=== PATIENT | female | born 1950 | race Caucasian/White ===

== ENCOUNTER 2016-05-09 14:33 | Emergency (ER) | payer MEDICARE, BC ==
[2016-05-09 15:29] LABS: #Lymphocytes 1.3 thou/uL (1.20-3.40); #Neutrophils 12.8 thou/uL (1.40-6.50); %Basophils 0.2 % (0.0-1.0); %Lymphocytes 8.6 % (21.0-51.0); %Monocytes 6.8 % (0.0-10.0); %Neutrophils 84.4 % (42.0-75.0); Hemoglobin 11.4 g/dL (12.0-16.0); Mean Corpuscular HGB CONC 33.4 g/dL (32.0-36.0); Mean Corpuscular Hemoglobin 31.9 pg (27.0-31.0); Mean Corpuscular Volume 95.5 fl (81.0-99.0); Mean Platelet Volume 5.5 fL (7.4-10.4); Platelet Count 259 thou/uL (130-400); RBC Distribution Width 12.6 % (11.5-14.5); Red Blood Cell (RBC) Count 3.56 mill/uL (4.20-5.40); White Blood Cell (WBC) Count 15.1 thou/uL (4.8-10.8)
[2016-05-09 15:44] LABS: Actual Bicarbonate (HCO3v) 24 mEq/L (24-30)
[2016-05-09 15:45] LABS: Base Excess -1.9 mEq/L (-2 - +2)
[2016-05-09 16:36] LABS: Bilirubin Negative (Negative); Blood, Urine Small (Negative); Clarity Clear (Clear); Glucose, Urine (Dipstick) Negative (Negative); Leukocyte Small (Negative); Nitrite Negative (Negative); Protein, Urine (Dipstick) 100 mg/dL (Neg-Trace); Urobilinogen 0.2 mg/dL (0.2-1.0); pH, Urine 5.5 (5.0-9.0)
[2016-05-09 16:38] LABS: Bacteria/HPF 3+ HPF (None Seen); RBC/HPF 0-3 HPF (0-3); Squamous Epithelial 0-3 HPF (0-3); Transitional Epithelial 0-3 HPF (0-3); WBC/HPF 0-3 HPF (0-3)
[2016-05-09] MEDS ORDERED: cefTRIAXone\\ROCEPHIN 1 GM VIAL ONE (16:51)
== END 2016-05-09 18:00 | disposition home or self-care (01) ==
LOC: BURERS 14:33
DX: N17.9 Acute kidney failure, unspecified (principal); N39.0 Urinary tract infection, site not specified; E86.0 Dehydration; G43.909 Migraine, unspecified, not intractable, without status migrainosus; E11.9 Type 2 diabetes mellitus without complications; I10 Essential (primary) hypertension; J45.909 Unspecified asthma, uncomplicated; Z79.82 Long term (current) use of aspirin; Z79.899 Other long term (current) drug therapy; Z86.73 Personal history of transient ischemic attack (TIA), and cerebral infarction without residual deficits
CPT/HCPCS: 36416; 81003; 81015; 82550; 82805; 85025; 87086; 96361; 96365; J0696

== ENCOUNTER 2016-05-14 10:24 | Outpatient (CLI) | payer MEDICARE, BC ==
[2016-05-14 11:07] LABS: Anion Gap 14 mmol/L (10-20); BUN (Urea Nitrogen) 50 mg/dL (9.8-20.1); Calc. Creatinine Clearance 0 mL/min (70-130); Calcium 9.2 mg/dL (7.8-10.44); Carbon Dioxide 21 mmol/L (23-31); Chloride 109 mmol/L (98-107); Estimated GFR-MDRD 34; Glucose 101 mg/dL (80-115); Potassium 3.7 mmol/L (3.5-5.1); Sodium 140 mmol/L (136-145)
== END 2016-05-14 10:25 | disposition home or self-care (01) ==
LOC: HPCALD 10:24
PROVIDERS: ATTEND Family Medicine
DX: N28.9 Disorder of kidney and ureter, unspecified (principal)
CPT/HCPCS: 36415; 80048

== ENCOUNTER 2016-07-15 20:07 | Emergency (ER) | payer MEDICARE, BC ==
[2016-07-15] MEDS ORDERED: Ondansetron HCl/PF 4 MG/2 ML Vial ONE (20:45)
[2016-07-15] MEDS ORDERED: Famotidine 20 MG TAB ONE (20:45)
[2016-07-15] MEDS ORDERED: Famotidine In NaCl 20 mg/50 ml Premix Bag ONE (20:46)
--- NOTE | 2016-07-15 21:42 | CT ---
CT ADOMEN AND PELVIS WITHOUT CONTRAST: Date: 07-15-16 Technique: Spiral CT of the abdomen and pelvis was performed for evaluation of abdominal pain. Ther e have been multiple prior surgeries. Axial slices were acquired without oral or IV contrast. Zhou l reconstructions were done. FINDINGS: The lung bases are clear. There may be a minimal hiatal hernia. Breast implants are noted bilaterall y. The liver, spleen, pancreas, adrenal glands and kidneys were unremarkable within the limitations of the noncontrast study. The kidneys showed no mass or hydronephrosis. No renal calculi were seen. The aorta has some calcification in it but no dilation. The bowel is nondistended with no sign of obstruction. A few of the loops of colon might have margin ally thickened wall sizes, but these are collapsed loops and I would be hesitant to make too much of this. No inflammatory changes are seen around bowel. There is a small fat filled umbilical hernia. CT of the pelvis showed a 3.5 cm rounded dense mass or cyst in the left adnexal region. An elective ultrasound to take a look at this would be prudent. I understand there has been a prior right oophor ectomy. There is no free fluid or inflammatory change in the region. Prior surgery is noted in the l ower lumbar spine. IMPRESSION: 1. No acute abdominal or pelvic findings to explain the patient's pain. 2. 3.5 cm left adnexal mass or cyst. Follow up elective ultrasound recommended. 3. Other minor findings as listed above. POS: HOME
[2016-07-15 21:47] LABS: ALT (SGPT) 20 U/L (8-55); AST (SGOT) 13 U/L (5-34); Albumin 3.5 g/dL (3.4-4.8); Alkaline Phosphatase 115 U/L (40-150); Anion Gap 16 mmol/L (10-20); BUN (Urea Nitrogen) 39 mg/dL (9.8-20.1); Bilirubin, Total 0.7 mg/dL (0.2-1.2); Calc. Creatinine Clearance 0 mL/min (70-130); Calcium 9.2 mg/dL (7.8-10.44); Carbon Dioxide 22 mmol/L (23-31); Chloride 104 mmol/L (98-107); Estimated GFR-MDRD 37; Globulin 4.4 g/dL (2.4-3.5); Glucose 249 mg/dL (80-115); Lipase 12 U/L (8-78); Potassium 4.7 mmol/L (3.5-5.1); Protein, Total 7.9 g/dL (6.0-8.3); Sodium 137 mmol/L (136-145)
[2016-07-15 21:50] LABS: Anisocytosis SLIGHT = 6-15 cells (100X) (0-5/hpf); Band 12 % (5-11); Hemoglobin 10.5 g/dL (12.0-16.0); Lymphocytes 7 % (21-51); MDiff Complete? YES; Mean Corpuscular HGB CONC 33.1 g/dL (32.0-36.0); Mean Corpuscular Hemoglobin 30.4 pg (27.0-31.0); Mean Corpuscular Volume 91.9 fl (81.0-99.0); Mean Platelet Volume 5.2 fL (7.4-10.4); Monocytes 7 % (0-10); Neutrophil 74 % (42-75); PLT Morphology Comment Appears Adequate; Platelet Count 358 thou/uL (130-400); RBC Distribution Width 15.2 % (11.5-14.5); Red Blood Cell (RBC) Count 3.45 mill/uL (4.20-5.40); Small Platelets SLIGHT; White Blood Cell (WBC) Count 18.1 thou/uL (4.8-10.8)
[2016-07-15 22:50] LABS: Blood, Urine Small (Negative); Clarity Clear (Clear); Glucose, Urine (Dipstick) 250 mg/dL (Negative); Leukocyte Negative (Negative); Nitrite Negative (Negative); Protein, Urine (Dipstick) 100 mg/dL (Neg-Trace); Urobilinogen 0.2 mg/dL (0.2-1.0)
[2016-07-15 22:52] LABS: Bilirubin Negative (Negative)
[2016-07-15 22:53] LABS: Bacteria/HPF 2+ HPF (None Seen); Hyaline Casts/LPF 0-3 HYALINE CAST LPF (0-3 Hyaline); Other Casts/LPF 0-3 FINELY GRAN LPF (0-3 Hyaline); RBC/HPF 0-3 HPF (0-3); Squamous Epithelial 0-3 HPF (0-3)
[2016-07-15] MEDS ORDERED: Sodium Chloride 0.9% 100 ML ONE (23:06)
[2016-07-15] MEDS ORDERED: Ketorolac Tromethamine 30 MG/ML VIAL ONE (23:06)
[2016-07-15] MEDS ORDERED: cefTRIAXone\\ROCEPHIN 2 GM VIAL ONE ×2 (23:06→23:07)
[2016-07-15 23:36] LABS: CKMB 0.9 ng/mL (0-6.6); Troponin I 0.013 ng/mL (< 0.028)
[2016-07-16] MEDS ORDERED: Ondansetron HCl/PF 4 MG/2 ML Vial ONE
== END 2016-07-16 03:00 | disposition short-term general hospital (02) ==
LOC: BURERS 20:07
DX: N30.01 Acute cystitis with hematuria (principal); D64.9 Anemia, unspecified; N28.9 Disorder of kidney and ureter, unspecified; R11.2 Nausea with vomiting, unspecified; I25.10 Atherosclerotic heart disease of native coronary artery without angina pectoris; E11.9 Type 2 diabetes mellitus without complications; Z79.4 Long term (current) use of insulin; I10 Essential (primary) hypertension; G43.909 Migraine, unspecified, not intractable, without status migrainosus; J45.909 Unspecified asthma, uncomplicated; Z79.82 Long term (current) use of aspirin; Z79.899 Other long term (current) drug therapy
CPT/HCPCS: 36415; 74176; 80053; 81003; 81015; 82553; 83605; 83690; 84484; 85025; 93005; 94760; 96361; 96365; 96367; 96375; 96376; J0696; J1885; J2405; J7050

== ENCOUNTER 2016-07-19 20:14 | Emergency (ER) | payer MEDICARE, BC ==
[~2016-07-19 20:14] MED LIST: Iopamidol 370 76% 100 ML VIAL ONE
[2016-07-19] MEDS ORDERED: Ondansetron HCl/PF 4 MG/2 ML Vial ONE (20:31)
[2016-07-19 20:49] LABS: #Basophils 0.1 thou/uL (0.0-0.2); #Eosinphils 0.2 thou/uL (0.0-0.7); #Lymphocytes 3.1 thou/uL (1.20-3.40); #Monocytes 1.5 thou/uL (0.11-0.59); #Neutrophils 8.8 thou/uL (1.40-6.50); %Eosinophils 1.4 % (0.0-10.0); %Lymphocytes 22.8 % (21.0-51.0); %Monocytes 10.7 % (0.0-10.0); %Neutrophils 64.1 % (42.0-75.0); Hemoglobin 11.6 g/dL (12.0-16.0); Mean Corpuscular HGB CONC 31.9 g/dL (32.0-36.0); Mean Corpuscular Hemoglobin 28.1 pg (27.0-31.0); Mean Corpuscular Volume 88.2 fl (81.0-99.0); Mean Platelet Volume 5.1 fL (7.4-10.4); Platelet Count 438 thou/uL (130-400); RBC Distribution Width 14.8 % (11.5-14.5); Red Blood Cell (RBC) Count 4.12 mill/uL (4.20-5.40); White Blood Cell (WBC) Count 13.7 thou/uL (4.8-10.8)
[2016-07-19] MEDS ORDERED: Fentanyl 100 MCG/2 ML VIAL ONE (20:50)
[2016-07-19 21:03] LABS: ALT (SGPT) 20 U/L (8-55); AST (SGOT) 19 U/L (5-34); Albumin 3.5 g/dL (3.4-4.8); Alkaline Phosphatase 88 U/L (40-150); Anion Gap 22 mmol/L (10-20); BUN (Urea Nitrogen) 14 mg/dL (9.8-20.1); Bilirubin, Total 0.4 mg/dL (0.2-1.2); Calc. Creatinine Clearance 0 mL/min (70-130); Calcium 9.5 mg/dL (7.8-10.44); Carbon Dioxide 20 mmol/L (23-31); Chloride 97 mmol/L (98-107); Estimated GFR-MDRD 42; Globulin 4.3 g/dL (2.4-3.5); Glucose 296 mg/dL (80-115); Lipase 33 U/L (8-78); Potassium 3.6 mmol/L (3.5-5.1); Protein, Total 7.8 g/dL (6.0-8.3); Sodium 135 mmol/L (136-145)
[2016-07-19] MEDS ORDERED: Metoprolol Tartrate 5 MG/5 ML VIAL ONE (21:20)
[2016-07-19] MEDS ORDERED: Promethazine HCl 25 MG/ML VIAL ONE (21:25)
[2016-07-19 21:34] LABS: Troponin I 0.247 ng/mL (< 0.028)
[2016-07-19] MEDS ORDERED: Heparin 20,000 units/D5W 500 ML ONE (22:13)
[2016-07-19] MEDS ORDERED: Heparin 5,000 UNITS/ML VIAL ONE (22:13)
--- NOTE | 2016-07-19 22:46 | CT ---
CT ABDOMEN WITH CONTRAST CT PELVIS WITH CONTRAST: DATE: 07/19/2016 TIME: 9:39 PM HISTORY: A 65-year-old female with nausea, emesis, and abdominal pain. COMPARISON: CT from 07/15/2016. TECHNIQUE: IV injection of iodinated contrast media: 70 mL of Isovue 370 Oral contrast media: Not administered. FINDINGS: No free air or free fluid within the abdominal cavity or pelvic cavity. Cholecystectomy clips. Sma ll fat-containing umbilical hernia. No small bowel dilation. Midline uterus. Distended but otherw ise normal urinary bladder. Again demonstrated is the approximately 3 x 4 cm, well circumscribed, n onlobulated, homogeneously soft tissue attenuation mass in the left adnexa, without surrounding fat stranding, to the left of the uterus. If this left-sided mass represents the left ovary, it is abno rmally enlarged, in a postmenopausal female. The transverse colon is redundant. A redundant component of the transverse colon descends to the le ft lower anterior peritoneal cavity, where it has diffuse wall thickening and mild pericolonic fat s tranding. This was also the case previously, but it is more obvious on the current CT. The lumen o f this abnormal segment of transverse colon is fluid filled. No appendix is visualized, and it is a ssumed that the patient is status post appendectomy. Pedicle screws and interbody cage are noted at L4-L5 of the lumbar spine. Cholecystectomy clips. Small sliding hiatal hernia. No abdominal aort ic aneurysm. The kidneys, adrenals, pancrease, liver, and spleen are normal. No small bowel dilati on. The lung bases are clear. IMPRESSION: 1. Abnormal mural thickening of a very ptotic segment of the transverse colon, extending down to th e level of the pelvic inlet, with mild surrounding fat stranding. This has the appearance of a foca l colitis involving this segment. 2. Left adnexal 4 cm mass. Further evaluation with transvaginal ultrasound is recommended, on an e lective, outpatient basis. 3. Status post posterior lumbar interbody fusion at L4-L5 of the lower lumbar spine. 4. Status post cholecystectomy. 5. No significant interval change compared to 07/15/2016. AUGIE Russo POS: OMAR
== END 2016-07-19 22:47 | disposition short-term general hospital (02) ==
LOC: BURERS 20:14
DX: R11.2 Nausea with vomiting, unspecified (principal); I48.91 Unspecified atrial fibrillation; E11.9 Type 2 diabetes mellitus without complications; I10 Essential (primary) hypertension; G43.909 Migraine, unspecified, not intractable, without status migrainosus; J45.909 Unspecified asthma, uncomplicated; Z79.82 Long term (current) use of aspirin; Z79.4 Long term (current) use of insulin; Z79.899 Other long term (current) drug therapy
CPT/HCPCS: 74177; 80053; 82553; 83605; 83690; 84484; 85025; 96361; 96372; 96374; 96375; 96376; J1644; J2405; J2550; J3010

== ENCOUNTER 2016-08-01 15:02 | Outpatient (CLI) | payer MEDICARE, BC ==
[2016-08-01 15:18] LABS: #Eosinphils 0.2 thou/uL (0.0-0.7); #Monocytes 0.6 thou/uL (0.11-0.59); #Neutrophils 4.5 thou/uL (1.40-6.50); %Basophils 0.6 % (0.0-1.0); %Eosinophils 3.9 % (0.0-10.0); %Lymphocytes 15.1 % (21.0-51.0); %Monocytes 10.1 % (0.0-10.0); %Neutrophils 70.5 % (42.0-75.0); Hemoglobin 8.6 g/dL (12.0-16.0); Mean Corpuscular HGB CONC 31.6 g/dL (32.0-36.0); Mean Corpuscular Volume 91.8 fl (81.0-99.0); Mean Platelet Volume 5.5 fL (7.4-10.4); Platelet Count 304 thou/uL (130-400); RBC Distribution Width 17.7 % (11.5-14.5); Red Blood Cell (RBC) Count 2.97 mill/uL (4.20-5.40); White Blood Cell (WBC) Count 6.4 thou/uL (4.8-10.8)
== END 2016-08-01 15:03 | disposition home or self-care (01) ==
LOC: HPCALD 15:02
PROVIDERS: ATTEND Family Medicine
DX: D64.89 Other specified anemias (principal)
CPT/HCPCS: 36415; 83516; 85025

== ENCOUNTER 2016-08-12 10:14 | Outpatient (CLI) | payer MEDICARE, BC ==
[2016-08-12 12:12] LABS: Anion Gap 16 mmol/L (10-20); BUN (Urea Nitrogen) 20 mg/dL (9.8-20.1); Calc. Creatinine Clearance 0 mL/min (70-130); Calcium 8.4 mg/dL (7.8-10.44); Carbon Dioxide 22 mmol/L (23-31); Chloride 105 mmol/L (98-107); Estimated GFR-MDRD 56; Glucose 214 mg/dL (80-115); Potassium 4.4 mmol/L (3.5-5.1); Sodium 139 mmol/L (136-145)
[2016-08-12 13:04] LABS: #Eosinphils 0.3 thou/uL (0.0-0.7); #Lymphocytes 1.6 thou/uL (1.20-3.40); #Monocytes 0.4 thou/uL (0.11-0.59); #Neutrophils 7.1 thou/uL (1.40-6.50); %Basophils 0.4 % (0.0-1.0); %Eosinophils 2.8 % (0.0-10.0); %Lymphocytes 16.9 % (21.0-51.0); %Monocytes 4.1 % (0.0-10.0); %Neutrophils 75.7 % (42.0-75.0); Hemoglobin 9.4 g/dL (12.0-16.0); Mean Corpuscular HGB CONC 30.3 g/dL (32.0-36.0); Mean Corpuscular Hemoglobin 26.7 pg (27.0-31.0); Platelet Count Less than 7 thou/uL (130-400); RBC Distribution Width 18.2 % (11.5-14.5); Red Blood Cell (RBC) Count 3.52 mill/uL (4.20-5.40); White Blood Cell (WBC) Count 9.3 thou/uL (4.8-10.8)
== END 2016-08-12 10:15 | disposition home or self-care (01) ==
LOC: HPCALD 10:14
PROVIDERS: ATTEND Family Medicine
DX: D64.89 Other specified anemias (principal); E86.0 Dehydration
CPT/HCPCS: 36415; 80048; 85025

== ENCOUNTER 2016-08-12 10:40 | Outpatient (CLI) | payer MEDICARE, BC ==
[2016-08-12 12:20] LABS: INR-International Normal Ratio 1.1; PTT 29.2 SEC (22.9-36.1); Prothrombin Time 14.8 SEC (12.0-14.7)
[2016-08-13 10:02] LABS: Protein C Activity 114 % (78-152)
[2016-08-13 10:03] LABS: Factor VIII Test 261.3 % ACTIVE (56-157)
[2016-08-14 09:18] LABS: Antinuclear AB Negative (Negative); Complement-C3 (Sendout) 140 mg/dL (82-167); Complement-C4 (Sendout) 20 mg/dL (14-44); DSDNA Autoabs (FARR) Less than 1 IU/mL (0-9); Smooth Muscle Total Antibodies <0.2 AI (0.0-0.9); U1 RNP/snRNP IgG Autoabs <0.2 AI (0.0-0.9)
== END 2016-08-12 10:41 | disposition home or self-care (01) ==
LOC: BURLAB 10:40
PROVIDERS: ATTEND Psychiatry & Neurology Neurology
DX: I63.9 Cerebral infarction, unspecified (principal); I25.10 Atherosclerotic heart disease of native coronary artery without angina pectoris
CPT/HCPCS: 36415; 80048; 81240; 83090; 85025; 85240; 85300; 85303; 85305; 85307; 85379; 85598; 85610; 85730; 86160; 86225; 86235; 86376

== ENCOUNTER 2016-09-03 11:02 | Outpatient (CLI) | payer MEDICARE, BC ==
[2016-09-03 12:14] LABS: ALT (SGPT) 17 U/L (8-55); AST (SGOT) 11 U/L (5-34); Albumin 3.7 g/dL (3.4-4.8); Alkaline Phosphatase 49 U/L (40-150); Anion Gap 15 mmol/L (10-20); BUN (Urea Nitrogen) 25 mg/dL (9.8-20.1); Bilirubin, Total 0.4 mg/dL (0.2-1.2); Calc. Creatinine Clearance 0 mL/min (70-130); Calcium 8.7 mg/dL (7.8-10.44); Carbon Dioxide 26 mmol/L (23-31); Cardiac Risk 2.5 (Less than 4.5); Chloride 102 mmol/L (98-107); Cholesterol 139 mg/dl (< 200 Desired); Estimated GFR-MDRD 51; Globulin 2.6 g/dL (2.4-3.5); Glucose 175 mg/dL (80-115); HDL Cholesterol 56 mg/dL (>60 Neg Risk); LDL Cholesterol, Calculated 60 mg/dL; Potassium 3.6 mmol/L (3.5-5.1); Protein, Total 6.3 g/dL (6.0-8.3); Sodium 139 mmol/L (136-145); Triglycerides 117 mg/dL (Less than 150)
[2016-09-03 12:20] LABS: Hemoglobin A1c 6.8 % (4.0-6.0)
== END 2016-09-03 11:03 | disposition home or self-care (01) ==
LOC: BURLAB 11:02
PROVIDERS: ATTEND Internal Medicine Endocrinology, Diabetes & Metabolism
DX: E11.65 Type 2 diabetes mellitus with hyperglycemia (principal); E78.5 Hyperlipidemia, unspecified; I10 Essential (primary) hypertension
CPT/HCPCS: 36415; 80053; 80061; 83036

== ENCOUNTER 2016-10-06 15:44 | Outpatient (CLI) | payer MEDICARE, BC ==
[2016-10-06 17:19] LABS: Anisocytosis SLIGHT = 6-15 cells (100X) (0-5/hpf); Hemoglobin 11.6 g/dL (12.0-16.0); Lymphocytes 1 % (21-51); MDiff Complete? YES; Mean Corpuscular HGB CONC 32.2 g/dL (32.0-36.0); Mean Corpuscular Hemoglobin 29.6 pg (27.0-31.0); Mean Corpuscular Volume 91.7 fl (81.0-99.0); Mean Platelet Volume 6.4 fL (7.4-10.4); Monocytes 6 % (0-10); Neutrophil 93 % (42-75); Platelet Count 176 thou/uL (130-400); RBC Distribution Width 17.7 % (11.5-14.5); Red Blood Cell (RBC) Count 3.91 mill/uL (4.20-5.40); White Blood Cell (WBC) Count 31.8 thou/uL (4.8-10.8)
== END 2016-10-06 15:45 | disposition home or self-care (01) ==
LOC: HPCALD 15:44
PROVIDERS: ATTEND Family Medicine
DX: R05 Cough (principal)
CPT/HCPCS: 36415; 85025

== ENCOUNTER 2016-10-06 16:00 | Outpatient (CLI) | payer MEDICARE, BC ==
--- NOTE | 2016-10-06 22:06 | RAD ---
CHEST 2 VIEWS: DATE: 10/06/16. COMPARISON: Comparison is made with a 08/19/16 study. FINDINGS: There has been no adverse interval change. The lungs are clear with no convincing signs of pneumoni a. There is a little streaking in the right base medially, but I am not convinced it is an acute in filtrate. If symptoms continued, then I would want to see another chest series and take a second lo ok at this area. The overlying calcified breast prosthesis partially obscures this area. There are no effusions or vascular congestion. There has been prior cardiac surgery. Scoliosis is noted as usual. IMPRESSION: Equivocal right basilar streaking medially, but not enough to confidently diagnose infection as of y et. A second look at this area may be necessary if symptoms continue. CODE T POS: HOME
== END 2016-10-06 16:01 | disposition home or self-care (01) ==
LOC: BURRAD 16:00
PROVIDERS: ATTEND Family Medicine
DX: R05 Cough (principal)
CPT/HCPCS: 36415; 71020; 85025

== ENCOUNTER 2016-10-10 10:40 | Outpatient (CLI) | payer MEDICARE, BC ==
--- NOTE | 2016-10-10 20:38 | ULT ---
RIGHT LOWER EXTREMITY VENOUS ULTRASOUND 10/10/16 Color duplex doppler ultrasonography of the right lower extremity was performed to evaluate swelling . Documentary images and worksheets were provided and reviewed. Color duplex doppler ultrasonography of the deep veins of the right lower extremity was performed. A ll deep veins were freely compressible from groin to ankle. There was normal doppler responses to au gmentation maneuvers. No echogenic clot was seen. IMPRESSION: No evidence of DVT. POS: HOME
== END 2016-10-10 10:41 | disposition home or self-care (01) ==
LOC: BURULT 10:40
PROVIDERS: ATTEND Family Medicine
DX: M79.89 Other specified soft tissue disorders (principal)

== ENCOUNTER 2016-10-17 11:23 | Outpatient (CLI) | payer MEDICARE, BC ==
[2016-10-17 12:04] LABS: Anion Gap 15 mmol/L (10-20); BUN (Urea Nitrogen) 52 mg/dL (9.8-20.1); Calc. Creatinine Clearance 0 mL/min (70-130); Calcium 8.5 mg/dL (7.8-10.44); Carbon Dioxide 29 mmol/L (23-31); Chloride 101 mmol/L (98-107); Estimated GFR-MDRD 23; Glucose 133 mg/dL (80-115); Potassium 4.4 mmol/L (3.5-5.1); Sodium 141 mmol/L (136-145)
== END 2016-10-17 11:24 | disposition home or self-care (01) ==
LOC: HPCALD 11:23
PROVIDERS: ATTEND Family Medicine
DX: R60.9 Edema, unspecified (principal)
CPT/HCPCS: 36415; 80048; 83880; 84443

== ENCOUNTER 2016-12-23 14:26 | Emergency (ER) | payer MEDICARE, BC ==
[2016-12-23 15:12] LABS: INR-International Normal Ratio 1.1; Prothrombin Time 14.5 SEC (12.0-14.7)
[2016-12-23] MEDS ORDERED: Ondansetron ODT 4 MG TAB ONE ×2 (15:20→16:14)
[2016-12-23 15:24] LABS: ALT (SGPT) 17 U/L (8-55); AST (SGOT) 19 U/L (5-34); Albumin 3.1 g/dL (3.4-4.8); Alkaline Phosphatase 84 U/L (40-150); Anion Gap 12 mmol/L (10-20); BUN (Urea Nitrogen) 33 mg/dL (9.8-20.1); Bilirubin, Total 0.3 mg/dL (0.2-1.2); Calc. Creatinine Clearance 0 mL/min (70-130); Calcium 8.8 mg/dL (7.8-10.44); Carbon Dioxide 20 mmol/L (23-31); Chloride 108 mmol/L (98-107); Estimated GFR-MDRD 41; Globulin 3.3 g/dL (2.4-3.5); Glucose 214 mg/dL (80-115); Potassium 4.8 mmol/L (3.5-5.1); Protein, Total 6.4 g/dL (6.0-8.3); Sodium 135 mmol/L (136-145)
[2016-12-23 15:29] LABS: #Eosinphils 0.3 thou/uL (0.0-0.7); #Lymphocytes 1.9 thou/uL (1.20-3.40); #Monocytes 0.7 thou/uL (0.11-0.59); #Neutrophils 6.6 thou/uL (1.40-6.50); %Basophils 0.4 % (0.0-1.0); %Eosinophils 2.8 % (0.0-10.0); %Monocytes 7.3 % (0.0-10.0); %Neutrophils 69.5 % (42.0-75.0); Anisocytosis SLIGHT = 6-15 cells (100X) (0-5/hpf); Elliptocytes SLIGHT = 2-5 cells (100X) (0-1/hpf); Hemoglobin 9.5 g/dL (12.0-16.0); MDiff Complete? YES; Mean Corpuscular HGB CONC 31.4 g/dL (32.0-36.0); Mean Corpuscular Volume 85.7 fl (81.0-99.0); Mean Platelet Volume 10.1 fL (7.4-10.4); PLT Morphology Comment PLTS DECREASED ON SLIDE; Platelet Count 34 thou/uL (130-400); Poikilocytosis SLIGHT = 6-15 cells (100X) (0-5/hpf); RBC Distribution Width 18.3 % (11.5-14.5); Red Blood Cell (RBC) Count 3.51 mill/uL (4.20-5.40); White Blood Cell (WBC) Count 9.6 thou/uL (4.8-10.8)
[2016-12-23] MEDS ORDERED: HYDROcodone/Acetaminophen 10/325 mg Tablet ONE (17:47)
== END 2016-12-23 17:58 | disposition home or self-care (01) ==
LOC: BURERS 14:26
DX: K55.1 Chronic vascular disorders of intestine (principal); J45.909 Unspecified asthma, uncomplicated; I10 Essential (primary) hypertension; E11.9 Type 2 diabetes mellitus without complications; Z79.4 Long term (current) use of insulin; Z79.899 Other long term (current) drug therapy
CPT/HCPCS: 36415; 80053; 85025; 85610; 85730; 99284; Q0162

== ENCOUNTER 2017-02-23 11:11 | Emergency (ER) | payer MEDICARE, BC ==
--- NOTE | 2017-02-23 13:11 | RAD ---
PA AND LATERAL VIEWS CHEST: HISTORY: Cough. FINDINGS: Comparison is made with the exam of 02/15/17. Changes of median sternotomy are again seen. The heart size is mildly enlarged but stable. Bilatera l breast implants are present. The lungs are expanded without focal areas of consolidation, pneumoth orax, wojciech pulmonary edema, or pleural effusions. IMPRESSION: No radiographic evidence of acute cardiopulmonary process. POS: PRABHUH
== END 2017-02-23 12:20 | disposition home or self-care (01) ==
LOC: BURERS 11:11
DX: J11.1 Influenza due to unidentified influenza virus with other respiratory manifestations (principal); I25.10 Atherosclerotic heart disease of native coronary artery without angina pectoris; E11.9 Type 2 diabetes mellitus without complications; I10 Essential (primary) hypertension; I69.321 Dysphasia following cerebral infarction; G43.909 Migraine, unspecified, not intractable, without status migrainosus; J45.909 Unspecified asthma, uncomplicated; F32.9 Major depressive disorder, single episode, unspecified; D69.6 Thrombocytopenia, unspecified; Z79.4 Long term (current) use of insulin; Z79.82 Long term (current) use of aspirin; Z79.899 Other long term (current) drug therapy
CPT/HCPCS: 71046; J7620

== ENCOUNTER 2017-02-27 08:34 | Emergency (ER) | payer MEDICARE, BC ==
[2017-02-27] MEDS ORDERED: AMOXicillin 250 MG CAP ONE (09:34)
== END 2017-02-27 09:37 | disposition home or self-care (01) ==
LOC: BURERS 08:34
DX: J02.9 Acute pharyngitis, unspecified (principal); I10 Essential (primary) hypertension; I25.10 Atherosclerotic heart disease of native coronary artery without angina pectoris; E11.9 Type 2 diabetes mellitus without complications; I69.321 Dysphasia following cerebral infarction; G43.909 Migraine, unspecified, not intractable, without status migrainosus; J45.909 Unspecified asthma, uncomplicated; F32.9 Major depressive disorder, single episode, unspecified; Z79.4 Long term (current) use of insulin
CPT/HCPCS: 87081; 87430; 99283

== ENCOUNTER 2017-11-10 16:19 | Emergency (ER) | payer MEDICARE, BC ==
[2017-11-10 17:00] LABS: #Eosinphils 0.1 thou/uL (0.0-0.7); #Lymphocytes 1.8 thou/uL (1.20-3.40); #Neutrophils 8.1 thou/uL (1.40-6.50); %Basophils 0.3 % (0.0-1.0); %Eosinophils 1.1 % (0.0-10.0); %Lymphocytes 16.5 % (21.0-51.0); %Monocytes 9.1 % (0.0-10.0); Hemoglobin 14.6 g/dL (12.0-16.0); Mean Corpuscular HGB CONC 33.5 g/dL (32.0-36.0); Mean Corpuscular Hemoglobin 31.7 pg (27.0-31.0); Mean Corpuscular Volume 94.5 fL (78.0-98.0); Mean Platelet Volume 7.4 fL (7.4-10.4); Platelet Count 186 thou/uL (130-400); RBC Distribution Width 13.1 % (11.5-14.5); Red Blood Cell (RBC) Count 4.61 mill/uL (4.20-5.40); White Blood Cell (WBC) Count 11.1 thou/uL (4.8-10.8)
[2017-11-10 17:16] LABS: ALT (SGPT) 26 U/L (8-55); AST (SGOT) 22 U/L (5-34); Albumin 4.1 g/dL (3.4-4.8); Alkaline Phosphatase 86 U/L (40-150); Anion Gap 14 mmol/L (10-20); BUN (Urea Nitrogen) 28 mg/dL (9.8-20.1); Bilirubin, Total 0.5 mg/dL (0.2-1.2); Calc. Creatinine Clearance 0 mL/min (70-130); Calcium 9.4 mg/dL (7.8-10.44); Carbon Dioxide 25 mmol/L (23-31); Chloride 103 mmol/L (98-107); Estimated GFR-MDRD 38; Glucose 106 mg/dL (80-115); Potassium 4.9 mmol/L (3.5-5.1); Protein, Total 7.1 g/dL (6.0-8.3); Sodium 137 mmol/L (136-145)
[2017-11-10] MEDS ORDERED: ALPRAZolam 0.5 MG TAB ONE (17:27)
--- NOTE | 2017-11-10 18:25 | CT ---
CT OF THE BRAIN WITHOUT CONTRAST 11/10/17 Comparison is made with the prior study of 08/18/16. There has been no adverse change in the interval. No intracranial bleeding or extra-axial hematoma wa s seen. The ventricles are normal in size and show no shift. No parenchymal bleeding, mass or edema w as seen. A small old infarct is seen in the left frontal region and there might be a very tiny one in the right occipital lobe medially as well. The calvarium appears intact. The sphenoid sinus and mast oid air cells are clear. IMPRESSION: 1. No acute traumatic findings. 2. Old lacunar infarcts as noted. POS: HOME
--- NOTE | 2017-11-10 18:48 | RAD ---
RIGHT RIBS 11/10/17 Comparison is made with the 02/23/17 chest x-ray. No rib fractures were appreciated. The patient's osteopenia and soft tissues hamper the sensitivity o f the study. More subtle fractures in the lower ribs, particularly distally, might be easily missed. The lungs are clear. The heart is normal in size. There is no mediastinal widening or shift. Scoliosi s is noted as usual. Median sternotomy sutures are present from prior surgery. IMPRESSION: Low sensitivity study showing no acute findings. POS: HOME
== END 2017-11-10 17:34 | disposition home or self-care (01) ==
LOC: BURERS 16:19
DX: S09.90XA Unspecified injury of head, initial encounter (principal); D69.3 Immune thrombocytopenic purpura; I25.10 Atherosclerotic heart disease of native coronary artery without angina pectoris; E11.9 Type 2 diabetes mellitus without complications; Z86.73 Personal history of transient ischemic attack (TIA), and cerebral infarction without residual deficits; G43.909 Migraine, unspecified, not intractable, without status migrainosus; J45.909 Unspecified asthma, uncomplicated; F32.9 Major depressive disorder, single episode, unspecified; Z79.899 Other long term (current) drug therapy; Z79.4 Long term (current) use of insulin
CPT/HCPCS: 36415; 70450; 80053; 85025

== ENCOUNTER 2018-01-25 09:34 | Emergency (ER) | payer MEDICARE, BC ==
[2018-01-25] MEDS ORDERED: Dexamethasone 4 mg/ml Vial ONE (10:26)
--- NOTE | 2018-01-25 10:28 | RAD ---
CHEST 2 VIEWS: DATE: 01/25/2018. COMPARISON: 02/23/2017. HISTORY: Cough. FINDINGS: Rim calcified breast implants are again noted. There is atherosclerotic calcification in the aortic arch. Midline sternotomy wires are present. No pneumothorax, pleural fluid, focal consolidation, or alveolar edema. Occlusion device overlies the expected location of the left atrial appendage. IMPRESSION: No acute findings. POS: PRABHU
== END 2018-01-25 12:42 | disposition home or self-care (01) ==
LOC: BURERS 09:34
DX: J20.9 Acute bronchitis, unspecified (principal); J45.901 Unspecified asthma with (acute) exacerbation; F32.9 Major depressive disorder, single episode, unspecified; Z79.4 Long term (current) use of insulin; Z79.899 Other long term (current) drug therapy
CPT/HCPCS: 71046; 94640; 96372; J1100; J7620

== ENCOUNTER 2018-05-20 14:25 | Outpatient (CLI) | payer MEDICARE, BC ==
--- NOTE | 2018-05-20 22:20 | RAD ---
CHEST TWO VIEWS: 05/20/18 COMPARISON: Comparison is made with a 01/25/18 study. The heart is normal in size. There is no vascular congestion, edema, or pleural effusion. The lungs a re clear. Breast implants are noted as usual. Median sternotomy sutures are noted from prior surgery. Scoliosis is prominent in the thoracic region. IMPRESSION: No acute thoracic findings. POS: HOME
== END 2018-05-20 14:26 | disposition home or self-care (01) ==
LOC: BURRAD 14:25
PROVIDERS: ATTEND Family Medicine
DX: Z01.818 Encounter for other preprocedural examination (principal)
CPT/HCPCS: 71046